=== PATIENT | male | born 1975 | race Hispanic/Latino ===

== ENCOUNTER 2022-05-15 06:43 | Emergency (ER) | payer OTHER, SELFPAY ==
--- OUTSIDE RECORDS SUMMARY | 2022-05-15 06:47 | XMS REPORT | Continuity of Care Document ---
:1975 Author Organization [facility] t Address [address] [place] [address] Care Team Providers Name Role Phone Asked, No Pcp Primary Care Physician Unavailable Erasto COLE, Sylvester Ryan Attending Clinician ALEXEY Attending Clinician Unavailable Barry Almanzar Attending Clinician Newton Valdivia Attending Clinician VISIT, NURSE STACIA BURGER Attending Clinician Unavailable Corbin Candelaria Attending Clinician ALEXEY Admitting Clinician Unavailable Newton Valdivia Admitting Clinician Payers Payer Name Policy Type Policy Number Effective Date Expiration Date Radha GRIFFIN - [employer] [id number] 1989 (PPO) 00:00:00 Problems Condition Condition Condition Status Onset Resolution Last Treating Co mments Source Name Details Category Date Date Treatment Clinician Date R10.12 - R10.12 - Diagnosis Active 2015-09-01 Memoria LEFT UPPER LEFT UPPER 4-07 16:37:00 l QUADRANT QUADRANT 00:01: Alcides sierra PAIN PAIN 00 Active 08/19/2015 [facility] [place] Disorder Disorder Problem 2017-10-12 Memoria of the of the 13:12:59 l skin and skin and Alcides sierra subcutaneo subcutaneo us tissue, us tissue, unspecifie unspecifie d d 10/12/2017 [place] Nicotine Nicotine Problem 2017-10-12 Memoria dependence dependence 13:12:59 l , , Ihsan cigarettes cigarettes , , uncomplica uncomplica isabell isabell 10/12/2017 [place] Alcohol Alcohol Problem Active 2019-05-12 Me moria abuse abuse 00:06:12 l (disorder) (disorder) He rmann Active Problem 05/12/2019 [facility] [place] Body mass Body mass Problem Active 2019-05-12 Memoria index 30+ index 30+ 00:06:12 l - obesity - obesity Shu espinoza (finding) (finding) Active Problem 05/12/2019 [facility] [place] Effects of Effects Problem Active 2019-05-12 Memoria heat of heat 00:06:12 l (disorder) (disorder) He rmann Active Problem 05/12/2019 [facility] [place] Hyperglyce Hyperglyc Problem Active 2019-05-12 Memoria finesse emia 00:06:12 l (disorder) (disorder) He rmann Active Problem 05/12/2019 [facility] [place], [place] Liver Liver Problem Active 2019-05-12 Memor ia enzymes enzymes 00:06:12 l abnormal abnormal Alcides sierra (finding) (finding) Active Problem 05/12/2019 [facility] [place], [place] Shoulder Shoulder Problem Active 2019-05-12 Memoria pain pain 00:06:12 l (finding) (finding) Herm olga Active Problem 05/12/2019 right shoulde pain due to lesion [facility] [place] History of Past Illness Condition Condition Condition Status Onset Resolution Last Treating Co mments Source Name Details Category Date Date Treatment Clinician Date Localized Localized Problem 2017-0 2017-10-12 2017-10-12 Memoria swelling, swelling, 3-08 13:12:59 13:12:59 l mass and mass and 05:07: Alcides n lump, lump, 29 right right upper limb upper limb 8 10/12/2017 [place] Allergies, Adverse Reactions, Alerts This patient has no known allergies or adverse reactions. Social History Social Habit Start Date Stop Date Quantity Comments Source History of tobacco Smokes tobacco [facility] use daily Hospital Cigarettes smoked 2021-11-29 2021-11-[address] current (pack per 00:00:00 00:00:00 Hospita l day) - Reported Tobacco use and 2021-11-29 2021-11-29 Smokeless tobacco [facility] exposure 00:00:00 00:00:00 non-user Hospital Alcohol intake 2021-11-29 2021-11-29 Current drinker [facility] 00:00:00 00:00:00 of alcohol Hospital (finding) Social History 2017-07-04 2017-07-04 [facility] 17:15:49 17:15:49 Sex Ass[birth year] At [birth year] [facility] 00:00:00 00:00:00 Hospital Smoking Status Start Date Stop Date Source Smokes tobacco daily 2021-11-29 00:00:00 [facility] Medications Ordered Filled Start Stop Current Ordering Indication Dosage Frequency Signature Comments Components Source Medication Medication Date Date Medication? Clinician (SIG) Name Name penicillin 500mg Q.25D Take 1 Me thodi v potassium 11-[address] (VEETID) 00:00: 04:59 (500 mg Hospi ta 500 MG 00 :00 total) by l tablet mouth 4 (four) times a day for 7 days. levofloxaci 2018-05 Yes 500 mg = 1 Memoria n 500 mg 2-27 tab, PO, l oral tablet 15:16: Daily, X He rmann 00 10 day, # 10 tab, 0 Refill(s), Pharmacy: [facility] [id number] Bromphenira 2018-05 Yes 5 mL, PO, M emoria mine 2-27 Q4H, PRN l Maleate 0.4 15:16: cough, X 8 [place] MG/ML / 00 day, # 240 Dextrometho mL, 0 rphan Refill(s), Hydrobromid Pharmacy: e 2 MG/ML / [facility] rine [id number] Hydrochlori de 6 MG/ML Oral Solution [Bromfed DM] dexamethaso No Route: IV, Memoria ne (ANES) 2-23 Drug form: l 18:52: INJ, ONCE, Stop date: 07/06/17 12:52:00 [employer] ceFAZolin No Route: IV, Me moria (ANES) 2-23 Drug form: l 18:46: INJ, ONCE, Stop date: 07/06/17 12:46:00 [employer] lidocaine No Route: IV, Me moria (ANES) 2-23 Drug form: l 18:46: INJ, ONCE, Stop date: 07/06/17 12:46:00 [employer] fentaNYL No Route: IV, Mem oria (ANES) 2- Drug form: l 18:46: INJ, ONCE, Stop date: 07/06/17 12:46:00 [employer] propofol No Route: IV, Mem oria (ANES) 2- Drug form: l 18:46: INJ, ONCE, Stop date: 07/06/17 12:46:00 [employer] ondansetron No Route: IV, Memoria (ANES) 2- Drug form: l 18:46: INJ, ONCE, Stop date: 07/06/17 12:46:00 [employer] Acetaminoph No 1 - 2 tab, Memoria en 300 MG / - PO, Q4H, l Codeine 18:43: PRN Pain, Mirella nn Phosphate 00 X 4 day, # 30 MG Oral 36 tab, 0 Tablet Refill(s) [Tylenol with Codeine #3] acetaminoph No Notes: Do M emoria en-codeine - not exceed l #3 18:43: 4gm/day of acetaminop hen. (Same as: Tylenol with Codeine # 3) midazolam No Route: IV, Me moria (ANES) 2- Drug form: l 18:41: SOLN, ONCE, Stop date: 07/06/17 12:41:00 [employer] Lactated No Route: IV, Mem oria Ringers - Total l Injection 17:57: Volume: Mirella nn IV (ANES) 00 1,000, 1000 mL Start date: 07/06/17 11:57:00 [employer], Stop date: 07/06/17 12:57:00 [employer] Calcium No 1,000 mL, Memor ia Chloride 07-06 Rate: 25 l 0.0014 15:59: ml/hr, MEQ/ML / 00 Infuse Potassium over: 40 Chloride hr, Route: 0.004 IV, Dosing MEQ/ML / Weight Sodium 84.091 kg, Chloride Total 0.103 Volume: MEQ/ML / 1,000, Sodium Start Lactate date: 0.028 07/06/17 MEQ/ML 9:59:00 Injectable [employer], Solution Duration: 30 day, Stop date: 08/05/17 9:58:00 CDT, 2, m2 ceFAZolin + No Notes: Crow arian sterile 07-06 (Same As: l water 20 mL 11:00: Ancef, Herm olga 00 Kefzol) MEDICATION WASTE Product Size: 1000 mg Product Wasted: ___ mg Acetaminoph No 1 tab, PO, Memoria en 300 MG / -19 Q6H, PRN l Codeine 16:51: pain, X 7 Mirella nn Phosphate 00 day, # 28 30 MG Oral tab, 0 Tablet Refill(s) Vital Signs Vital Name Observation Time Observation Value Comments Source Systolic blood 2021-11-29 16:20:49 119 mm[Hg] [facility] pressure Diastolic blood 2021-11-29 16:20:49 90 mm[Hg] [facility] pressure Heart rate 2021-11-29 16:20:49 98 /min [facility] Body temperature 2021-11-29 16:20:49 36.94 Audra [facility] Respiratory rate 2021-11-29 16:20:49 16 /min [facility] Oxygen saturation in 2021-11-29 16:20:49 98 /min [facility] Arterial blood by Pulse oximetry Body height 2021-11-29 16:16:00 167.6 cm [facility] Body weight 2021-11-29 16:16:00 81.647 kg [facility] BMI 2021-11-29 16:16:00 29.05 kg/m2 [facility] Systolic (mm Hg) 2019-05-09 14:45:00 Crow rial Ihsan Diastolic (mm Hg) 2019-05-09 14:45:00 [facility] orial Ihsan Heart Rate 2019-05-09 14:45:00 [facility] Temperature Oral (F) 2019-05-09 14:45:00 97.7 F [facility] [place] Weight 2019-05-09 14:45:00 [facility] [place] Systolic (mm Hg) 2017-07-06 20:55:00 Crow rial Ihsan Diastolic (mm Hg) 2017-07-06 20:55:00 Mem orial Ihsan Respitory Rate 2017-07-06 20:55:00 Memori al Ihsan Diastolic (mm Hg) 2017-07-06 20:25:00 Mem orial [place] Respitory Rate 2017-07-06 20:25:00 Memori al [place] Systolic (mm Hg) 2017-07-06 20:25:00 Crow rial [place] Systolic (mm Hg) 2017-07-06 20:10:00 Crow rial Ihsan Diastolic (mm Hg) 2017-07-06 20:10:00 Mem orial Ihsan Respitory Rate 2017-07-06 20:10:00 Memori al [place] Heart Rate 2017-07-06 16:15:00 [facility] [place] BMI Calculated 2017-07-04 16:32:00 Memori al Ihsan Height 2017-07-04 16:32:00 167.64 cm [facility] [place] Weight 2017-07-04 16:32:00 [facility] [place] Weight 2017-07-02 15:59:00 [facility] [place] Temperature Oral (F) 2017-07-02 15:59:00 98.3 F [facility] [place] Systolic (mm Hg) 2017-07-02 15:59:00 Crow rial [place] Diastolic (mm Hg) 2017-07-02 15:59:00 Mem orial Ihsan Heart Rate 2017-07-02 15:59:00 [facility] Procedure Date / Time Performing Clinician Source Performed CT MAXILLOFACIAL WO 2021-11-29 [facility]:11[facility] 2021-11-29 18:10:32 Ana Ryan [facility] XR KNEE 3 VW BILATERAL 2021-11-29 17:17:16 Ana Ryan [facility] Miscellaneous 2017-07-06 06:00:00 [facility] operations<sup>1</sup> Plan of Care Planned Activity Planned Date Details Comments Source Future Scheduled 2022-04-25 COVID-19 VACCINE (#1) [facility] Test 12:33:14 [code = COVID-19 VACCINE (#1)] Future Scheduled 2022-04-25 Pneumococcal Vaccine: [facility] Test 12:33:14 Pediatrics (0 to 5 Years) and At-Risk Patients (6 to 64 Years) (1 - PCV) [code = Pneumococcal Vaccine: Pediatrics (0 to 5 Years) and At-Risk Patients (6 to 64 Years) (1 - PCV)] Future Scheduled 2022-04-25 Hepatitis C screening [facility] Test 12:33:14 (procedure) [code = [id number]] Future Scheduled 2022-04-25 COLONOSCOPY SCREENING [facility] Test 12:33:14 [code = COLONOSCOPY SCREENING] Future Scheduled 2022-04-25 INFLUENZA VACCINE [facility] Test 12:33:14 [code = INFLUENZA VACCINE] Encounters Start End Encounter Admission Attending Care Care Encounter Source Date/Time Date/Time Type Type Clinicians Facility Department ID 2021-11-29 2021-11-29 Emergency Erasto, [id number] [facility] 12:31:00 14:05:00 Sylvester Ryan [id number] [id number] Hospit [id number] l .8 2021-11-29 2021-11-29 Emergency [facility] [id number] [place] 00:00:00 00:00:00 [place] [address] 2021-09-02 2021-09-02 Outpatient [facility] [id number] [place] 11:45:[place] [id number] da [facility] 2019-05-09 2019-05-10 Outpatient nullFlavo [facility] Family 4 [id number] Memoria 14:30:00 05:59:59 r Medicine 19 l Jose R Champagne 2019-05-09 2019-05-09 Outpatient RAFITA Almanzar [facility] [id number] 08:30:00 23:59:59 Barry 19 2019-05-09 2019-05-09 Outpatient DARLINE JENKINS [id number] Memoria 08:30:00 08:30:00 Almaz Champagne 2017-07-06 2017-07-[address] [facility] [id number] Memoria 15:46:48 20:55:00 Surgery henry Champagne 08 l Debra macdonald 2017-07-06 2017-07-06 Outpatient ADELA Valdivia [facility] [id number] 09:46:48 14:55:00 Newton 08 Jordon 2017-07-02 2017-07-03 Outpatient nullFlavo [facility] [id number] Memoria 16:30:00 05:59:59 r Radiology 18 emma Champagne 2017-07-02 2017-07-03 Outpatient nullFlavo [facility] Family 4 [id number] Memoria 15:45:00 05:59:59 r Medicine 16 emma Odell [place] 2017-07-02 2017-07-02 Outpatient VISIT, [facility] MG [id number] 10:30:00 23:59:59 NURSE [facility] 18 XRAY 2017-07-02 2017-07-02 Outpatient Almanzar, [facility] [id number] 09:45:00 23:59:59 Barry 16 2017-07-02 2017-07-02 Ambulatory nullFlavo [facility] [id number] Memoria 16:30:00 16:30:00 Pre-Reg r Radiology 17 emma Odell Ihsan 2017-07-02 2017-07-02 Outpatient MHIE [facility] [id number] Memoria 10:30:00 10:30:00 17 emma Ihsan 2017-07-02 2017-07-02 Outpatient MHIE [facility] [id number] Memoria 10:30:00 10:30:00 18 emma Ihsan 2017-07-02 2017-07-02 Outpatient VISIT, MG MG [id number] 10:30:00 10:30:00 NURSE [facility] 17 XRAY 2017-07-02 2017-07-02 Outpatient MHIE MHIE [id number] Memoria 09:45:00 09:45:00 16 emma Champagne 2017-03-08 2017-03-08 Outpatient [facility] [id number] Memoria 07:15:00 07:15:00 15 emma Champagne 2016-10-25 2016-10-25 Outpatient MHIE [facility] [id number] Memoria 11:00:00 11:00:00 14 emma Champagne 2016-06-07 2016-06-07 Outpatient MHIE MH[facility] [id number] Memoria 11:30:00 11:30:00 13 emma Champagne 2016-05-19 2016-05-19 Outpatient MHIE MH[facility] [id number] Memoria 10:15:00 10:15:00 12 emma Champagne 2016-05-19 2016-05-19 Outpatient [facility] [id number] Memoria 10:15:00 10:15:00 11 emma Champagne 2016-05-19 2016-05-19 Outpatient MHIE [facility] [id number] Memoria 10:00:00 10:00:00 10 emma Champagne 2016-04-11 2016-04-11 Outpatient MHIE [facility] [id number] Memoria 09:45:00 09:45:00 09 emma Champagne 2016-01-06 2016-01-06 Outpatient MHIE [facility] [id number] Memoria 11:15:00 11:15:00 08 emma Champagne 2015-12-02 2015-12-02 Outpatient [facility] [id number] Memoria 09:20:00 09:20:00 05 emma Champagne 2015-11-11 2015-11-11 Outpatient MHIE [facility] [id number] Memoria 08:45:00 08:45:00 07 emma Champagne 2015-11-04 2015-11-04 Outpatient [facility] [id number] Memoria 08:45:00 08:45:00 06 emma Champagne 2015-10-21 2015-10-21 Outpatient MHIE [facility] [id number] Memoria 10:20:00 10:20:00 04 emma Champagne 2015-09-15 2015-09-15 Outpatient MHIE [facility] [id number] Memoria 14:40:00 14:40:00 02 emma Champagne 2015-09-01 2015-09-02 Outpt Diag nullFlavo [facility] [id number] Memoria 21:28:00 04:59:00 Services r Outpatient 00 emma Mcgrath 2015-09-01 2015-09-01 Outpatient Bari, 29 [id number] 16:28:00 23:59:00 Corbin Schaefer 00 2015-09-01 2015-09-01 Outpatient MHIE [facility] [id number] Memoria 14:45:00 14:45:00 01 emma Champagne Results This patient has no known results.
[2022-05-15] MEDS ORDERED: NITROGLYCERIN 0.4 MG/TAB SL ONE (07:41)
[2022-05-15] MEDS ORDERED: NA CHLORIDE 0.9% 500 ML ONE (07:42)
[2022-05-15 07:45] LABS: Absolute Lymphocytes (CBC) 0.7 K/uL (0.7-4.9); Lymphocytes % 8.3 % (15.3-44.8); MCV 97.2 fL (80-100); RBC Red Blood Cell Count 4.33 M/uL (4.33-5.43)
[2022-05-15 08:09] LABS: Albumin 3.4 g/dL (3.4-5.0); Bilirubin Direct 0.1 mg/dL (0-0.2); Bilirubin Total 0.5 mg/dL (0.2-1.0); Magnesium 1.6 mg/dL (1.6-2.4); Potassium 3.2 mmol/L (3.5-5.1); Protein, Total 6.8 g/dL (6.4-8.2); Troponin High Sensitivity 7.6 pg/mL (<58.9)
--- NOTE | 2022-05-15 08:37 | RAD REPORT ---
EXAM DESCRIPTION: RAD - Chest Single View - 05/15/2022 8:23 am CLINICAL HISTORY: CHEST PAIN COMPARISON: None TECHNIQUE: AP portable chest image was obtained 05/15/2022 8:23 am . FINDINGS: Lungs are clear. Heart and vasculature are normal. No measurable pleural effusion and no p neumothorax. No acute bony abnormality seen. No acute aortic findings suspected. IMPRESSION: No acute cardiopulmonary process.
[2022-05-15] MEDS ORDERED: MORPHINE 2 MG/ML SYR ONE (09:03)
[2022-05-15] MEDS ORDERED: POTASSIUM CL SA 10 MEQ TAB PO ONE (09:03)
--- NOTE | 2022-05-15 10:06 | EDPHYS ---
Physician Documentation [facility] Name: Cristian Pantoja Jr Age: 47 yrs Sex: Male : 1975 Arrival Date: 05/15/2022 Time: 06:51 Bed 13 Private MD: ED Physician Slime Nunez HPI: 05/15 07:34 This 47 yrs old Male presents to ER via EMS with complaints of Chest Pain > 30 sd2 y/o. 07:34 47-year-old male presents via EMS with chief complaint of left-sided chest pain that sd2 started around 530 this morning while he was driving to work. He denies any radiation of the pain but reports associated numbness and states the pain feels like sharp and pressure. Relates the pain was initially a 9 out of 10 but has improved to 5 out of 10. He did receive aspirin with EMS. He also reports some associated shortness of breath that has since resolved along with nausea. He denies any diaphoresis. No prior history of ID or family history of ID. He is a smoker. Denies any prior cardiac work-ups. Historical: - Allergies: 07:00 NKDA; vc1 - Home Meds: 07:00 None [Active]; vc1 - PMHx: 07:00 GERD; vc1 - PSHx: 07:00 None; vc1 - Immunization history:: Client reports having NOT received the Covid vaccine. - Social history:: Smoking status: Patient reports the use of cigarette tobacco products, smokes one pack cigarettes per day. ROS: 07:34 Constitutional: Negative for fever, chills, and weight loss, Eyes: Negative for injury, sd2 pain, redness, and discharge. 07:34 Abdomen/GI: Negative for abdominal pain, nausea, vomiting, diarrhea. 07:34 MS/Extremity: Negative for injury and deformity, Skin: Negative for injury, rash, and discoloration, Neuro: Negative for headache, numbness and tingling. 07:34 Cardiovascular: Positive for chest pain, Negative for edema. 07:34 Respiratory: Positive for shortness of breath, Negative for cough, wheezing. 07:34 Abdomen/GI: Positive for nausea, Negative for abdominal pain, vomiting, diarrhea. Exam: 07:34 Constitutional: This is a well developed, well nourished patient who is awake, alert, sd2 and in no acute distress. Head/Face: Normocephalic, atraumatic. Eyes: EOMI, normal conjunctiva bilaterally Chest/axilla: Normal chest wall appearance and motion. Nontender with no deformity. Cardiovascular: Regular rate and rhythm with a normal S1 and S2. No gallops, murmurs, or rubs. 2+ distal pulses. Respiratory: Lungs have equal breath sounds bilaterally, clear to auscultation and percussion. No rales, rhonchi or wheezes noted. No increased work of breathing, no retractions or nasal flaring. Abdomen/GI: Soft, non-tender, with normal bowel sounds. No guarding or rebound. No evidence of tenderness throughout. Skin: Warm, dry with normal turgor. Normal color with no rashes, no lesions, and no evidence of cellulitis. MS/ Extremity: Pulses equal, no cyanosis. Neurovascular intact. Full, normal range of motion. Ambulatory without difficulty. Psych: Awake, alert, with orientation to person, place and time. Behavior, mood, and affect are within normal limits. 07:34 ECG was reviewed by the Attending Physician. NSR, rate 99, no STEMI criteria or significant ST-T wave changes Vital Signs: 06:58 BP 136 / 92; Pulse 106; Resp 18; Temp 98.5; Pulse Ox 96% ; Weight 83.91 kg; Height 5 vc1 ft. 6 in. (167.64 cm); Pain 10/10; 07:00 BP 137 / 91; Pulse 107; Resp 20; Pulse Ox 100% on R/A; db 07:40 BP 129 / 93 (art line/); Pulse 98; Resp 24; Pulse Ox 96% on R/A; Pain 5/10; db 08:00 BP 121 / 79; Pulse 90; Resp 20; Pulse Ox 95% ; db 08:30 BP 132 / 89; Pulse 89; Resp 18; Pulse Ox 98% on R/A; db 09:00 BP 135 / 102; Pulse 88; Resp 18; Pulse Ox 99% on R/A; db 09:30 BP 121 / 91; Pulse 84; Resp 18; Pulse Ox 98% on R/A; db 10:00 BP 125 / 93; Pulse 84; Resp 18; Pulse Ox 99% on R/A; Pain 3/10; db 06:58 Body Mass Index 29.86 (83.91 kg, 167.64 cm) vc1 MDM: 07:06 Patient medically screened. sd2 07:34 Differential diagnosis: Differential diagnosis includes but is not limited to: ACS, sd2 DVT/PE, pneumothorax, dissection, musculoskeletal, anxiety, anemia, electrolyte abnormality, pneumonia, CHF, COPD among others. HEART Score: History: Moderately Suspicious (1), ECG: Normal (0), Age: > 45 and < 65 years (1), Risk Factors: 1 or 2 risk factors (1). 08:41 HEART Score: Troponin: < or = 1 x Normal Limit (0), Total Score = 3. The patient was sd2 not given aspirin in the Emergency Department. Administered by EMS. Data reviewed: vital signs, nurses notes, lab test result(s), EKG, radiologic studies. 10:02 Counseling: I had a detailed discussion with the patient and/or guardian regarding: the sd2 historical points, exam findings, and any diagnostic results supporting the discharge/admit diagnosis, lab results, radiology results, the need for outpatient follow up, to return to the emergency department if symptoms worsen or persist or if there are any questions or concerns that arise at home. Medical screen evaluation completed. EMTALA emergency medical condition absent. ED course: Labs and imaging reviewed. Labs grossly WNCL. Trop neg. EKG with no ischemic changes. CXR with no acute process. Pt feeling improved after treatment. States feels sore and pain is now worse with certain movements. Possible MSK etiology. Discussed and offered admission for chest pain rule out but patient declines and would like to go home and follow up outpatient. Does not currently have a PCP. Given sliding scale clinics as he does not have insurance at this time. Advised of strict return precautions and verbalizes understanding. . 05/15 07:21 Order name: Basic Metabolic Panel; Complete Time: 08:24 05/15 07:21 Order name: CBC with Diff; Complete Time: 08:24 05/15 07:21 Order name: LFT's; Complete Time: 08:24 05/15 07:21 Order name: Magnesium; Complete Time: 08:24 05/15 07:21 Order name: NT PRO-BNP; Complete Time: 08:24 05/15 07:21 Order name: Troponin HS; Complete Time: 08:24 05/15 07:21 Order name: XRAY Chest (1 view); Complete Time: 08:40 05/15 07:21 Order name: EKG; Complete Time: 07:22 05/15 07:21 Order name: D-Dimer; Complete Time: 08:24 05/15 07:21 Order name: Cardiac monitoring; Complete Time: 07:58 05/15 07:21 Order name: EKG - Nurse/Tech; Complete Time: 07:32 05/15 07:21 Order name: IV Saline Lock; Complete Time: 07:39 05/15 07:21 Order name: Labs collected and sent; Complete Time: 07:40 05/15 07:21 Order name: O2 Per Protocol; Complete Time: 07:58 05/15 07:21 Order name: O2 Sat Monitoring; Complete Time: 07:58 sd2 Administered Medications: 07:40 Drug: NS 0.9% 500 ml Route: IV; Rate: bolus; Site: right antecubital; db 09:07 Follow up: Response: No adverse reaction; IV Status: Completed infusion; IV Intake: db 500ml 07:40 Drug: Nitroglycerin 0.4 mg Route: Sublingual; db 09:07 Follow up: Response: No adverse reaction; Pain is decreased db 09:05 Drug: Potassium Chloride 40 mEq Route: PO; db 10:07 Follow up: Response: No adverse reaction db 09:05 Drug: morphine 2 mg Route: IVP; Infused Over: 4 mins; Site: right antecubital; db 10:15 Follow up: Response: No adverse reaction; Pain is decreased db 10:15 Drug: Ketorolac 15 mg Route: IVP; Site: right antecubital; db 10:24 Follow up: Response: No adverse reaction; Pain is decreased db Disposition Summary: 05/15/22 10:06 Discharge Ordered Location: Home sd2 Problem: new sd2 Symptoms: have improved sd2 Condition: Stable sd2 Diagnosis - Chest pain, unspecified sd2 Followup: sd2 - With: Private Physician - When: 2 - 3 days - Reason: Recheck today's complaints, Continuance of care, Re-evaluation by your physician Discharge Instructions: - Discharge Summary Sheet sd2 - Nonspecific Chest Pain, Adult sd2 - Chest Wall Pain sd2 Forms: - Medication Reconciliation Form sd2 - Thank You Letter sd2 - Antibiotic Education sd2 - Prescription Opioid Use sd2 - Work release form db Prescriptions: - Anaprox DS 550 mg Oral Tablet - take 1 tablet by ORAL route every 12 hours As needed Take with food.; 20 sd2 tablet; Refills: 0, Product Selection Permitted Signatures: Dispatcher [employer] Olga Lidia Ochoa RN RN vc1 Slime Nunez MD MD sd2 Franny Muniz RN RN db
--- NOTE | 2022-05-15 10:06 | ER ---
Nurse's Notes [facility] Name: Cristian Pantoja Jr Age: 47 yrs Sex: Male : 1975 Arrival Date: 05/15/2022 Time: 06:51 Bed 13 Private MD: Diagnosis: Chest pain, unspecified Presentation: 05/15 06:58 Chief complaint: Patient states: "I was going into work and I started having chest vc1 pain. It is so bad it brought almost brought me to my knees.". Coronavirus screen: Vaccine status: Patient reports being unvaccinated. muscle pain, At this time, the client does not indicate any symptoms associated with coronavirus-19. Ebola Screen: No symptoms or risks identified at this time. Initial Sepsis Screen: Does the patient meet any 2 criteria? HR > 90 bpm. No. Patient's initial sepsis screen is negative. Does the patient have a suspected source of infection? No. Patient's initial sepsis screen is negative. Risk Assessment: Do you want to hurt yourself or someone else? Patient reports no desire to harm self or others. Onset of symptoms was May 15, 2022 at 05:30. 06:58 Method Of Arrival: EMS: [facility] vc1 06:58 Acuity: DONNA 2 vc1 07:20 Care prior to arrival: IV initiated. 18 GA, in the left antecubital area. vc1 Triage Assessment: 07:01 General: Appears distressed, uncomfortable, Behavior is anxious. Pain: Complains of vc1 pain in anterior aspect of left upper chest Pain does not radiate. Pain currently is 10 out of 10 on a pain scale. EENT: No deficits noted. Neuro: Level of Consciousness is awake, alert, obeys commands, Oriented to person, place, time, situation, Appropriate for age. Cardiovascular: Reports chest pain, shortness of breath. Respiratory: Airway is patent Respiratory effort is even, unlabored, Respiratory pattern is regular, symmetrical. GI: No deficits noted. No signs and/or symptoms were reported involving the gastrointestinal system. : No deficits noted. No signs and/or symptoms were reported regarding the genitourinary system. Derm: No deficits noted. No signs and/or symptoms reported regarding the dermatologic system. Musculoskeletal: No deficits noted. No signs and/or symptoms reported regarding the musculoskeletal system. Historical: - Allergies: :00 NKDA; vc1 - Home Meds: 07:00 None [Active]; vc1 - PMHx: 07:00 GERD; vc1 - PSHx: 07:00 None; vc1 - Immunization history:: Client reports having NOT received the Covid vaccine. - Social history:: Smoking status: Patient reports the use of cigarette tobacco products, smokes one pack cigarettes per day. Screenin:19 [facility] ED Fall Risk Assessment (Adult) History of falling in the last 3 months, vc1 including since admission No falls in past 3 months (0 pts) Confusion or Disorientation No (0 pts) Intoxicated or Sedated No (0 pts) Impaired Gait No (0 pts) Mobility Assist Device Used No (0 pt) Altered Elimination No (0 pt) Score/Fall Risk Level 0 - 2 = Low Risk Oriented to surroundings, Maintained a safe environment, Educated pt \\T\\ family on fall prevention, incl call for assistance when getting out of bed. Abuse screen: Denies threats or abuse. Nutritional screening: No deficits noted. Tuberculosis screening: No symptoms or risk factors identified. Assessment: 07:40 Reassessment: Patient appears in no apparent distress at this time. Patient and/or db family updated on plan of care and expected duration. Pain level reassessed. Patient is alert, oriented x 3, equal unlabored respirations, skin warm/dry/pink. states has left chest pain that suddenly started this AM at 0530. General: Appears in no apparent distress. comfortable, Behavior is calm, cooperative, appropriate for age. Pain: Complains of pain in chest and anterior aspect of left upper chest. Pain: Pain radiates to radiates to left ribs Pain currently is 5 out of 10 on a pain scale. Pain began suddenly. Neuro: No deficits noted. Level of Consciousness is awake, alert, obeys commands, Oriented to person, place, time, situation. Cardiovascular: Capillary refill < 3 seconds Rhythm is sinus rhythm. Respiratory: Airway is patent Respiratory effort is even, unlabored, Respiratory pattern is regular, symmetrical, Parent/caregiver reports the patient having shortness of breath when chest pain started. 09:07 Reassessment: Patient appears in no apparent distress at this time. Pain: Complains of db pain in chest Pain currently is 3 out of 10 on a pain scale. 10:06 Reassessment: Patient appears in no apparent distress at this time. Patient and/or db family updated on plan of care and expected duration. Pain level reassessed. Patient is alert, oriented x 3, equal unlabored respirations, skin warm/dry/pink. Patient states feeling better. Patient states symptoms have improved. Vital Signs: 06:58 BP 136 / 92; Pulse 106; Resp 18; Temp 98.5; Pulse Ox 96% ; Weight 83.91 kg; Height 5 vc1 ft. 6 in. (167.64 cm); Pain 10/10; 07:00 BP 137 / 91; Pulse 107; Resp 20; Pulse Ox 100% on R/A; db 07:40 BP 129 / 93 (art line/); Pulse 98; Resp 24; Pulse Ox 96% on R/A; Pain 5/10; db 08:00 BP 121 / 79; Pulse 90; Resp 20; Pulse Ox 95% ; db 08:30 BP 132 / 89; Pulse 89; Resp 18; Pulse Ox 98% on R/A; db 09:00 BP 135 / 102; Pulse 88; Resp 18; Pulse Ox 99% on R/A; db 09:30 BP 121 / 91; Pulse 84; Resp 18; Pulse Ox 98% on R/A; db 10:00 BP 125 / 93; Pulse 84; Resp 18; Pulse Ox 99% on R/A; Pain 3/10; db 06:58 Body Mass Index 29.86 (83.91 kg, 167.64 cm) vc1 ED Course: 06:51 Patient arrived in ED. mw2 06:58 Olga Lidia Warren, RN is Primary Nurse. vc1 07:00 Triage completed. vc1 07:06 Slime Nunez MD is Attending Physician. sd2 07:20 Arm band placed on right wrist. vc1 07:21 Patient has correct armband on for positive identification. Bed in low position. Call vc1 light in reach. Side rails up X2. Client placed on continuous cardiac and pulse oximetry monitoring. NIBP monitoring applied. 07:39 D-Dimer Sent. bc6 07:40 Warm blanket given. db 07:40 Basic Metabolic Panel Sent. bc6 07:40 CBC with Diff Sent. bc6 07:40 Troponin HS Sent. bc6 07:40 NT PRO-BNP Sent. bc6 07:40 Magnesium Sent. bc6 07:40 Initial lab(s) drawn, by me, sent to lab. EKG done, by ED staff. Inserted saline lock: bc6 20 gauge in right antecubital area, using aseptic technique. 07:41 LFT's Sent. bc6 07:46 D-Dimer Sent. bc6 07:47 Basic Metabolic Panel Sent. bc6 07:47 CBC with Diff Sent. bc6 07:47 LFT's Sent. bc6 07:47 Magnesium Sent. bc6 07:47 NT PRO-BNP Sent. bc6 07:47 Troponin HS Sent. bc6 08:25 XRAY Chest (1 view) In Process Unspecified. EDMS 10:27 No provider procedures requiring assistance completed. IV discontinued, intact, db bleeding controlled, No redness/swelling at site. Administered Medications: 07:40 Drug: NS 0.9% 500 ml Route: IV; Rate: bolus; Site: right antecubital; db 09:07 Follow up: Response: No adverse reaction; IV Status: Completed infusion; IV Intake: db 500ml 07:40 Drug: Nitroglycerin 0.4 mg Route: Sublingual; db 09:07 Follow up: Response: No adverse reaction; Pain is decreased db 09:05 Drug: Potassium Chloride 40 mEq Route: PO; db 10:07 Follow up: Response: No adverse reaction db 09:05 Drug: morphine 2 mg Route: IVP; Infused Over: 4 mins; Site: right antecubital; db 10:15 Follow up: Response: No adverse reaction; Pain is decreased db 10:15 Drug: Ketorolac 15 mg Route: IVP; Site: right antecubital; db 10:24 Follow up: Response: No adverse reaction; Pain is decreased db Medication: 07:40 VIS not applicable for this client. db Intake: 09:07 IV: 500ml; Total: 500ml. db Outcome: 10:06 Discharge ordered by . sd2 10:27 Discharged to home ambulatory. db 10:27 Condition: stable 10:27 Discharge instructions given to patient, Instructed on discharge instructions, follow up and referral plans. 10:28 Prescriptions given X 1. db 10:28 Patient left the ED. db Signatures: Dispatcher [employer] EDMS Bird Luna mw2 Olga Lidia Warren RN RN vc1 Slime Nunez MD MD sd2 Franny Muniz, RN RN db Viji Lyon bc6 Corrections: (The following items were deleted from the chart) 10:16 10:00 BP 125 / 93; Pulse 84bpm; Resp 18bpm; Pulse Ox 99% RA; db db
[2022-05-15] MEDS ORDERED: KETOROLAC 30 MG/ML INJ ONE (10:13)
[2022-05-15 10:38] VITALS: TEMP 98.5
[2022-05-15 10:59] VITALS: BP 125/93; O2SAT 99
--- NOTE | 2022-05-17 16:08 | EKG ---
Test Date: 2022-05-15 Test Time: 07:15:25 Marketing Information Analyst: JULISA MEASUREMENT RESULTS: Intervals: Rate: 99 [place]: 154 QRSD: 88 QT: 354 QTc: 454 [place]: P: 67 [place]: 154 QRS: 82 T: 49 INTERPRETIVE STATEMENTS: Normal sinus rhythm Possible Left atrial enlargement Borderline ECG No previous ECG available for comparison Electronically Signed On 05-17-22 16:05:32 [employer] by Jun Martini
== END 2022-05-15 10:28 | disposition home or self-care (01) ==
LOC: ER 06:43
DX: R07.89 Other chest pain (principal); F17.210 Nicotine dependence, cigarettes, uncomplicated
CPT/HCPCS: 36415; 71045; 80048; 80076; 83735; 83880; 84484; 85025; 85379; 93005; 96361; 96374; 96375; 99285; J2270; J7040